=== PATIENT | male | born 1990 | race Caucasian/White ===

== ENCOUNTER 2017-11-16 17:00 | Outpatient (RCR) | payer SELFPAY ==
--- NOTE | 2018-01-10 10:44 | HP.PT.NRP ---
HP - Discharge Summary (1) - Patient Information RAMON ELLIOTT was seen in my office for initial evaluation on 08/23/17. The following Plan of Care was established for this patient: - Anticipated Interventions Manual Therapy Techniques to Include: Functional dry needling This patient was last seen in our office . Pertinent comments regarding their Physical therapy will appear below: Patient has not attended physical therapy in over 8 weeks. At this time patient is appropriate for d/c and return to MD as needed. At this point I will be discontinuing this patient from physical therapy. I would be happy to see this patient again in the future if found appropriate by the physician. Thank you! Sana Carmona
== END 2017-11-16 19:00 | disposition home or self-care (01) ==
LOC: PT 17:00
PROVIDERS: Family Provider Family Medicine; PCP Family Medicine
DX: R69 Illness, unspecified (principal)

== ENCOUNTER → 2018-02-01 15:56 | Outpatient (CLI) | payer BC, SELFPAY | PROVIDERS: Family Provider Family Medicine; PCP Family Medicine; Referring Provider Otolaryngology Otolaryngology/Facial Plastic Surgery; Visit Provider Otolaryngology Otolaryngology/Facial Plastic Surgery | DX: J02.9 Acute pharyngitis, unspecified (principal) | CPT/HCPCS: 87070 ==

== ENCOUNTER 2018-04-06 13:30 | Outpatient (RCR) | payer SELFPAY | END 2018-04-06 19:00 | disposition home or self-care (01) | LOC: PT 13:30 | PROVIDERS: Family Provider Family Medicine; PCP Family Medicine | DX: R69 Illness, unspecified (principal) ==

== ENCOUNTER 2018-11-30 14:00 | Outpatient (RCR) | payer SELFPAY ==
--- NOTE | 2018-12-21 13:28 | HP.PT.NRP ---
HP - Discharge Summary (1) - Patient Information RAMON ELLIOTT was seen in my office for initial evaluation on . The following Plan of Care was established for this patient: This patient was last seen in our office 11/30/18. Pertinent comments regarding their Physical therapy will appear below: Pt. to be DC from DN at this point in time. At this point I will be discontinuing this patient from physical therapy. I would be happy to see this patient again in the future if found appropriate by the physician. Thank you! RAYMON BetancourtT
== END 2018-11-30 19:00 | disposition home or self-care (01) ==
LOC: PT 14:00
PROVIDERS: Family Provider Family Medicine; PCP Family Medicine
DX: R69 Illness, unspecified (principal)

== ENCOUNTER 2019-08-21 13:22 | Outpatient (RCR) | payer SELFPAY | END 2019-08-21 19:00 | disposition home or self-care (01) | LOC: PT 13:22 | PROVIDERS: PCP Family Medicine | DX: Z00.00 Encounter for general adult medical examination without abnormal findings (principal) ==

== ENCOUNTER → 2020-03-27 08:16 | Outpatient (CLI) | payer OTHER, SELFPAY ==
[2020-03-27 10:33] LABS: ALB/GLOB Ratio 1.4 RATIO (0.9-2.4); AST(SGOT) 22 U/L (15-37); Alanine Aminotransfer ALT/SGPT 46 U/L (16-61); Albumin, Serum 4.3 g/dL (3.2-5.0); Alkaline Phosphatase 71 U/L (45-117); Anion Gap 6 (5-15); BUN 17 mg/dL (7-18); BUN/Creat Ratio 20.7 RATIO (10-20); Calcium,Total 8.8 mg/dL (8.5-10.1); Chloride 105 mmol/L (98-107); Cholesterol 182 mg/dL (200); Creatinine, Serum 0.82 mg/dL (0.70-1.30); EST Glomerular Filtration Rate 116 mL/min (>60); Est Glom Filt Rate - Afr Amer 140 mL/min (>60); Globulin 3.1 g/dL (2.2-4.2); Glucose 92 mg/dL (74-106); High Density Lipoprotein 54 mg/dL; Potassium 4.2 mmol/L (3.5-5.1); Protein, Total 7.4 g/dL (6.4-8.2); Sodium Level 139 mmol/L (136-145); Triglycerides 69 mg/dL; Very Low Density Lipoprotein 14 mg/dL (5-40)
== END ==
PROVIDERS: PCP Family Medicine; Referring Provider Family Medicine; Visit Provider Family Medicine
DX: Z13.1 Encounter for screening for diabetes mellitus (principal); Z13.220 Encounter for screening for lipoid disorders
CPT/HCPCS: 36415; 80053; 80061

== ENCOUNTER 2020-04-29 08:11 | Emergency (ER) | payer OTHER, SELFPAY ==
[2020-04-29 08:12] VITALS: BP 130/98; PULSE 102; RESP 20; TEMP 36.5; O2SAT 96; BMI 30.4
--- NOTE | 2020-04-29 08:13 | ED.VIS.GEN ---
History of Present Illness Chief Complaint: Chest Pain Narrative: 30-year-old healthy male presenting with chest pain. He states that started last night and he thought it was reflux, however this morning after going to work he started having sharp in the anterior portion of the right and left chest. It is intermittent. He also describes it as sometimes feeling like a bubble. Patient does not have any cardiac history or cardiac risk factors. He has no history of DVT/PE. Patient does state that he had Covid?19 and tested positive on the . He states he recovered without any sequela until developing chest pain today. Patient does not have fever, chills, nausea, vomiting, change in taste and smell, body aches. Past Medical History - Allergies and Home Meds Allergies/Adverse Reactions: Allergies No Known Allergies Allergy (Verified 05/21/15 16:07) Primary Care Physician: Dawit Hawley MD [Primary Care Provider] - Past Medical History: - - History of Covid?19 Surgical History: noncontributory Lives: Alone Smoking Status: Never smoker Alcohol: None Drugs: None Review of Systems General: Denies: Chills, Fever, Sweats Eyes: Denies: Visual changes - bilaterally, Diplopia ENT: Denies: Rhinorrhea, Sore throat Cardiovascular: Reports: Chest pain, Palpitations, Heart racing Respiratory: Denies: Dyspnea, Cough, Dyspnea on exertion Gastrointestinal: Denies: Abdominal pain, Nausea, Vomiting, Diarrhea, Melena, Hematochezia Genitourinary: Denies: Dysuria, Hematuria, Frequency Musculoskeletal: Denies: Back pain, Extremity Pain Skin: Denies: Rash, Wounds Neurological: Denies: Headache, Weakness, Numbness Psych: Denies: Depression, Anxiety Physical Exam General: Well nourished, Well developed, No Acute Distress Head: Normocephalic, Atraumatic Eyes: Perrl, EOMI ENT: Moist mucous membranes, No rhinorrhea Cardiovascular: Regular rate, Regular rhythm, No murmurs Respiratory: No distress, CTA bilaterally, Chest nontender Extremities: Nontender, No edema. Negative for: Calf Tenderness Skin: Normal color, No rash. Negative for: Cyanosis, Diaphoresis Neurological: Alert, Oriented x3, Cranial nerves II-XII grossly intact Psychological: Normal affect, Normal Mood Diagnostic/Tx/Re-eval - Rhythm Strip Rhythm Strip: Sinus Rhythm Rate: 87 - EKG Initial EKG Interpretation: Sinus Rhythm, No Acute Injury Pattern, Sinus Arrythmia - Medical Decision Making 1-year-old healthy male presenting with chest pain since this morning. He denies nausea, lightheadedness, diaphoresis. Patient does not complain of shortness of breath but does state that he has palpitations. Patient recently recovered from Covid?19 without sequela thus far. On arrival patient had EKG interpreted by myself which shows a normal sinus rhythm with slight sinus arrhythmia. There are no changes. Patient CBC shows no leukocytosis. Renal function and electrolytes are normal. Troponin is negative. Chest x-ray is interpreted by myself and the radiologist shows no acute process. Heart score is 0. D-dimer is negative. I have low suspicion for ACS I do not believe the patient needs a repeat troponin or EKG. Patient will be discharged home in stable condition. Impression: 1. Chest pain ED Disposition - Plan for ED Patient: Disposition: Home or Assisted Living Instructions: ED Chest Pain, Uncertain Cause Referrals: Dawit Hawley MD [Primary Care Provider] -
--- NOTE | 2020-04-29 08:18 | RAD_ITS ---
STUDY: X-RAY CHEST REASON FOR EXAM: Male, 30 years old. Chest pain with palpitations started this morning, arm pain TECHNIQUE: Single AP portable view of the chest. COMPARISON: Comparison is made with prior study dated 05/08/2014. FINDINGS: EKG electrodes are seen. The lungs are clear and expanded. There is no demonstrated pleural abnormality. Normal size heart. Normal mediastinum and monika. Normal visualized pulmonary arteries. Normal visualized aortic arch and descending thoracic aorta. Normal visualized thoracic spine. Normal visualized ribs, clavicles, and shoulders. There is no demonstrated abnormality of the visualized soft tissue structures of the upper abdomen. RAD/Chest 1 View (Portable) IMPRESSION: Normal x-ray examination of the chest. Electronically Signed: Juan Briggs, at 9:00 EST , Service support ,
--- NOTE | 2020-04-29 08:18 | EKG12_ITS ---
Test Reason : CP Blood Pressure : / mmHG Vent. Rate : 087 BPM Atrial Rate : 087 BPM P-R Int : 128 ms QRS Dur : 094 ms QT Int : 358 ms P-R-T Axes : 075 080 028 degrees QTc Int : 430 ms Normal sinus rhythm with sinus arrhythmia Normal ECG Confirmed by MYRNA SHULTZ, MARY ([id number]), editor in chief newspaper SHU MCKINNEY ([id number]) on 05/01/2020 11:28:27 AM Referred By: OMAYRA Confirmed By:MARY NORRIS MD
[2020-04-29 08:28] LABS: Absolute Lymphocyte Count 2.16 X10^3/uL (0.83-4.51); Absolute Neutrophil Count 2.3 X10^3/uL (2.0-7.7); Basophil# 0.03 X10^3/uL; Basophil% 0.6 % (0-1); Eosinophil# 0.08 X10^3/uL; Eosinophils% 1.5 % (0-5); Hematocrit 46.7 % (40-54); Lymphocyte # 2.16 X10^3/ul (4.0); Lymphocyte % 41.6 % (19-41); Mean Corp Hgb Conc 34.3 g/dL (32-36); Mean Corpuscular Hgb 30.2 pg (27.0-32.0); Mean Corpuscular Volume 88.1 fL (80-94); Mean Platelet Vol. 9.5 fl (6.2-12.0); Monocyte# 0.61 X10^3/uL; Monocyte% 11.8 % (0-10); NRBC Flagged by Analyzer 0 % (0-5); Neutrophil % 44.3 % (47-70); Platelet Count 315 K/mm3 (150-450); RBC Distribution Width CV 12.2 % (11.6-14.6); RBC Distribution Width SD 39.6 fl (35.1-43.9); White Blood Count 5.2 K/mm3 (4.4-11.0)
[2020-04-29] MEDS: 0.9% Normal Saline 1,000 ML 1000 ML IV (08:29)
[2020-04-29 08:42] LABS: ALB/GLOB Ratio 1.3 RATIO (0.9-2.4); AST(SGOT) 21 U/L (15-37); Alanine Aminotransfer ALT/SGPT 51 U/L (16-61); Albumin, Serum 4.3 g/dL (3.2-5.0); Alkaline Phosphatase 86 U/L (45-117); Anion Gap 5 (5-15); BUN 14 mg/dL (7-18); BUN/Creat Ratio 14.8 RATIO (10-20); Calcium,Total 8.8 mg/dL (8.5-10.1); Chloride 108 mmol/L (98-107); Creatinine, Serum 0.95 mg/dL (0.70-1.30); EST Glomerular Filtration Rate 99 mL/min (>60); Est Glom Filt Rate - Afr Amer 119 mL/min (>60); Globulin 3.2 g/dL (2.2-4.2); Glucose 104 mg/dL (74-106); Potassium 3.7 mmol/L (3.5-5.1); Protein, Total 7.5 g/dL (6.4-8.2); Sodium Level 140 mmol/L (136-145)
[2020-04-29 09:30] LABS: D-Dimer Quantitative (DVT/PE) <= 0.27 FEU/ug/m (0.27-0.49)
[2020-04-29 10:11] VITALS: BP 133/74; PULSE 83; RESP 16; O2SAT 98
[2020-04-29 11:25] VITALS: BP 119/68; PULSE 81; RESP 18; O2SAT 98
== END 2020-04-29 11:29 | disposition home or self-care (01) ==
PROVIDERS: Emergency Provider Student in an Organized Health Care Education/Training Program; PCP Family Medicine
DX: R07.9 Chest pain, unspecified (principal); Z86.16 Personal history of COVID-19
CPT/HCPCS: 71045; 80053; 84484; 85025; 85379; 93005; 96360; 96361; 99284; J7030; A4216

== ENCOUNTER → 2020-05-07 11:50 | Outpatient (CLI) | payer OTHER, SELFPAY ==
[2020-04-29 08:12] VITALS: BMI 30.4
== END ==
PROVIDERS: PCP Family Medicine; Referring Provider Internal Medicine Cardiovascular Disease; Visit Provider Internal Medicine Cardiovascular Disease
DX: R07.9 Chest pain, unspecified (principal); R00.2 Palpitations; U07.1 COVID-19
CPT/HCPCS: 93225; 93226

== ENCOUNTER → 2020-06-04 13:51 | Outpatient (CLI) | payer OTHER, SELFPAY ==
[2020-05-21 12:48] VITALS: BMI 29.9
--- NOTE | 2020-06-04 13:52 | ECHOD_ITS ---
Reason For Study: ARRHYTHMIA Procedure This was a 2D Doppler, Color Flow transthoracic echocardiogram. Exam performed in department. Left Ventricle Normal LV size. Left ventricular systolic function is normal. The estimated ejection fraction is 60 %. Normal diastology for age. No regional wall motion abnormalities noted. Right Ventricle Normal RV size. Normal systolic function. Atria Normal left atrium. Normal right atrium. Mitral Valve Normal mitral valve. Tricuspid Valve Normal tricuspid valve. Unable to estimate RV systolic pressure due to inadequate jet, pulmonary artery pressure probably normal. Aortic Valve Normal aortic valve. Trisinus/trileaflet aortic valve. Pulmonic Valve Normal pulmonic valve. Great Vessels Normal aortic root. The pulmonary artery is normal size. Normal inferior vena cava. Pericardium/Pleural No pericardial effusion. MMode/2D Measurements & Calculations LVIDd: 5.6 cm IVSd: 1.0 cm Ao root diam: 3.0 cm LVIDs: 3.8 cm LVPWd: 0.95 cm RVDd: 3.4 cm FS: 32.2 % LAV(MOD-bp): 43.8 ml LA A4 area: 18.0 cm2 LA dimension(2D): 3.6 cm LAV(MOD-bp) Indexed: 21.0 ml/m2 LAV(MOD-sp2): 36.8 ml LAV(MOD-sp4): 53.0 ml RA A4 area: 15.0 cm2 Time Measurements MV dec time: 0.17 sec Doppler Measurements & Calculations MV A max kar: 55.3 cm/sec Lat Peak E' Kar: 16.7 cm/sec Med Peak E' Kar: 13.0 cm/sec Ao V2 max: 101.3 cm/sec PA V2 max: 89.1 cm/sec Ao max P.1 mmHg Interpretation Summary Normal LV size. Left ventricular systolic function is normal. The estimated ejection fraction is 60 %. Structurally normal valves. Ordering Physician: Martha^Edson^^^ Referring Physician: Dawit Hawley Performed By: Monica Santacruz, PIIL, RVT
== END ==
PROVIDERS: PCP Family Medicine; Referring Provider Internal Medicine Cardiovascular Disease; Visit Provider Internal Medicine Cardiovascular Disease
DX: R00.2 Palpitations (principal)
CPT/HCPCS: 93306

== ENCOUNTER → 2021-02-16 07:30 | Outpatient (CLI) | payer OTHER, SELFPAY | PROVIDERS: PCP Family Medicine; Referring Provider Family Medicine; Visit Provider Family Medicine | DX: Z01.83 Encounter for blood typing (principal) | CPT/HCPCS: 36415; 86900; 86901 ==

== ENCOUNTER 2022-09-24 11:33 | Emergency (ER) | payer OTHER, SELFPAY ==
[2022-09-24 11:33] VITALS: BP 166/88; PULSE 119; RESP 16; TEMP 36.9; O2SAT 100; BMI 30.9
--- NOTE | 2022-09-24 12:45 | RAD_ITS ---
STUDY: X-RAY - RIGHT HAND REASON FOR EXAM: Male, 32 years old. Crush injury 5th finger TECHNIQUE: 3 view(s) of the hand. COMPARISON: None. FINDINGS: Normal radiocarpal articulation. Normal distal radioulnar joint. Normal visualized carpal bones. Normal carpal articulations Normal carpometacarpal articulation of the thumb. Normal second through fifth carpometacarpal joints. Normal metacarpi. Normal metacarpophalangeal joint of the thumb. Normal interphalangeal joint of the thumb. Normal proximal and distal phalanges of the thumb. Normal metacarpophalangeal joints of the second through fifth fingers. Normal proximal and distal interphalangeal joints of the second through fifth fingers. Normal phalanges of the second through fifth fingers. Soft tissue swelling. RAD/Hand Min 3 Views IMPRESSION: Soft tissue swelling. Electronically Signed: Juan Briggs MD at 13:20 EDT ,
--- NOTE | 2022-09-24 13:02 | EX.ED.GENINJ ---
HPI <LAVERNE Pandya - Last Filed: 09/24/22 15:09> History of Present Illness Chief Complaint: Laceration Narrative Narrative: Patient presenting today due to laceration to his right fifth finger that he got at work this morning. He reports that he was working with a steel rack when the rack fell and smashed his pinky finger. He is unsure if his tetanus is up-to-date or not. He denies any other injury. He is not on any blood thinners. PFS <LAVERNE Pandya - Last Filed: 09/24/22 15:09> [facility] Medical History (Updated 09/24/22 @ 14:20 by LAVERNE Pandya) ADD (attention deficit disorder) Obesity Home Medications methylphenidate HCl 20 mg capsule,extended release (40-60) sprinkle 20 mg PO DAILY 05/06/20 [History Last Taken Unknown] Allergy/AdvReac Type Severity Reaction Status Date / Time cefaclor [From Ceclor] Allergy hives Verified 09/24/22 11:35 erythromycin base AdvReac GI upset Verified 09/24/22 11:35 [From Erythrocin] prednisolone [From Prelone] AdvReac GI upset Verified 09/24/22 11:35 Family History Father CAD (coronary artery disease) Myocardial infarction Surgical History History of wisdom tooth extraction Social History Smoking Status: Never smoker ROS <LAVERNE Pandya - Last Filed: 09/24/22 15:09> ROS ED Constitutional Constitutional ED: Denies chills or fever(s) Cardiovascular Cardiovascular: Denies chest pain or palpitations Respiratory/Chest Respiratory/Chest: Denies cough, dyspnea, tachypnea or wheezing Gastrointestinal Gastrointestinal: Denies abdominal pain, nausea or vomiting Musculoskeletal Musculoskeletal: Reports arthralgias; Denies myalgias Integumentary Reports laceration Neurologic Neurologic: Denies weakness EXAM <LAVERNE Pandya - Last Filed: 09/24/22 15:09> Physical Exam Const Vital Signs: 09/24/22 11:33 Temperature 98.4 F Temperature Source Temporal Pulse Rate 119 H Respiratory Rate 16 Blood Pressure 166/88 H Blood Pressure Mean 114 Pulse Ox 100 Oxygen Delivery Method Room Air Positive well nourished, well developed and no apparent distress General Appearance ED: well developed HEENT Reports normocephalic and head/scalp atraumatic Mouth ED: Yes moist mucous membranes normal Eyes PERRL and EOMs intact bilaterally Neck full ROM and supple Chest Wall inspection of chest normal Resp normal respiratory effort and clear to auscultation bilaterally Cardio regular rate and regular rhythm GI soft to palpation, non-tender, non-distended and no masses Back/Spine normal ROM and normal to inspection Extremity Extremity Narrative: Laceration to the right fifth finger to the lateral aspect of the base of the nail, the base of the nail is detached. Patient has full flexion and extension at both the MCP, PIP, and DIP joints of this finger. Radial pulses 2+ bilaterally, good capillary refill, sensation intact. Neuro oriented x3, CN's II-XII intact bilaterally, moves all extremities, no focal motor deficits and no sensory deficits noted Sensorium / Orientation: awake and alert Psych mental status grossly normal and thought process normal <Dr. Daniel Qureshi, DO - Last Filed: 09/24/22 22:26> Physical Exam Const Vital Signs: 09/24/22 11:33 Temperature 98.4 F Temperature Source Temporal Pulse Rate 119 H Respiratory Rate 16 Blood Pressure 166/88 H Blood Pressure Mean 114 Pulse Ox 100 Oxygen Delivery Method Room Air PROC <LAVERNE Pandya - Last Filed: 09/24/22 15:09> Procedures Lacerations Laceration : Length: 1 cm Depth: Sub Q Shape: Linear Prep: Chlorhexadine Laceration repair: Digital block Number of Sutures/[place]: 3 Suture Information: Vicryl and 5-0 MDM <LAVERNE Pandya - Last Filed: 09/24/22 15:09> [facility] Narrative Medical decision making narrative: Patient presenting today due to an avulsion of the right fifth nailbed after crush injury occurred at work. He does have a small 0.5 cm subq laceration to the lateral aspect of his finger that is adjacent to the nailbed. Digital block was performed. The area was cleaned with chlorhexidine. I was able to remove the fingernail, there was one small irregularly shaped laceration to the nailbed that was repaired with sutures. The laceration to the lateral aspect of the finger was repaired with sutures. Tetanus was updated. The nail was cleaned and placed over top of the nailbed. Area was wrapped with a bandage and patient has been given a follow-up referral. He has been given a splint for his finger for protection. He will be discharged home in stable condition and is comfortable with plan. He has been given return instructions. Radiography X-Ray: Read by ED Physician and Read by Radiologist Diagnostic Testing: Clinical Impression(s) from Imaging Studies Hand X-Ray 09/24/22 12:45 IMPRESSION: Soft tissue swelling. Electronically Signed: Juan Briggs MD at 13:20 EDT , <Dr. Daniel Qureshi, DO - Last Filed: 09/24/22 22:26> MDM Radiography Diagnostic Testing: Clinical Impression(s) from Imaging Studies Hand X-Ray 09/24/22 12:45 IMPRESSION: Soft tissue swelling. Electronically Signed: Juan Briggs MD at 13:20 EDT , Treatment and Re-Evaluation Narrative: I have personally performed a face to face assessment of the patient and have reviewed the MELECIO Note. I performed a substantive portion of the visit including all aspects of the following. My [place] findings include: History: Patient presents with injury to his right fifth finger that occurred today. Patient states he got smashed between a steel plate and another hard object. Patient states the nail came out of the base of the nailbed. Patient states bleeding stopped after several minutes of pressure. Patient denies any paresthesias or weakness. Patient denies any other injuries. Patient is unsure of his last tetanus. Exam: Vital signs are stable. Patient is afebrile. Patient is in no acute distress. Musculoskeletal exam reveals tenderness over the distal phalanx of the right fifth finger. There is an avulsion of the base of the nail plate. There is no active bleeding noted. There is no obvious deformity noted. Range of motion was slightly limited in flexion extension of the DIP joint of the right fifth finger secondary to pain. Sensation was intact to light touch in all digits. Capillary refill is less than 2 seconds in all digits. Medical Decision Making: Differential diagnosis includes fracture, contusion, and laceration. X-rays of the right hand will be obtained to assess for fractures. X-rays of the right hand were reviewed. There are 3 views. On my independent interpretation, there is no acute fracture. Radiologist also interpreted the x-rays and agrees. Patient was given a tetanus booster. The right fifth finger was anesthetized with 1% lidocaine via digital block. The nail plate was removed. The wounds were cleaned and irrigated with copious amounts of normal saline. The wounds were closed by ED MELECIO under my supervision. Patient tolerated the procedure well. The nail was replaced under the eponychium. Bacitracin dressing was applied. Patient was instructed to keep the area clean and dry. Patient was instructed to follow-up with his primary care physician in 5 to 7 days. Patient understood and was agreeable with the plan. All questions were answered. Discharge Plan Triage Chief Complaint: Laceration ED Midlevel Provider: Kym Landis ED Provider: Daniel Qureshi Dx/Rx/DC Orders Clinical Impression: Avulsion of nail bed, Crush injury to finger, Laceration of finger nail bed Instructions: ED FINGERNAIL REMOVAL Prescriptions: No Action methylphenidate HCl 20 mg cap,ER sprinkle,biphasic 40-60 20 mg PO DAILY Primary Care Provider: Gene Lomax Referrals: Gene Lomax MD [Primary Care Provider] - Murtaza Vazquez DO [Med Staff - Active Staff] - 3-5 Days Activity Restrictions/Additional Instructions: Keep the area clean and covered, ice it several times a day for the next few days. Alternate Tylenol and ibuprofen for pain. Disposition Disposition: Home, Self Care Discharge Date/Time: 09/24/22 14:48
[2022-09-24] MEDS: Diphth,Pertuss(Acell),Tet Vac 0.5 ML Vial IM (13:10)
[2022-09-24] MEDS: Lidocaine 1% (20 ml mdv) 20 ML Vial 10 ML INFILT (14:31)
== END 2022-09-24 14:48 | disposition home or self-care (01) ==
PROVIDERS: Emergency Provider Emergency Medicine; PCP Family Medicine; Visit Provider Emergency Medicine
DX: S67.196A Crushing injury of right little finger, initial encounter (principal); S61.316A Laceration without foreign body of right little finger with damage to nail, initial encounter; W22.8XXA Striking against or struck by other objects, initial encounter; Y93.89 Activity, other specified; Y99.0 Civilian activity done for income or pay; Z23 Encounter for immunization
CPT/HCPCS: 11760; 12001; 73130; 90715; 99283

== ENCOUNTER → 2024-03-22 | Outpatient (CLI) | payer OTHER, SELFPAY ==
[2024-03-22 10:39] LABS: Anion Gap 4 (5-15); BUN 17 mg/dL (7-18); Calcium,Total 9.1 mg/dL (8.5-10.1); Chloride 108 mmol/L (98-107); Cholesterol 216 mg/dL (200); EST Glomerular Filtration Rate 102 mL/min (>60); Est Glom Filt Rate - Afr Amer 124 mL/min (>60); Glucose 96 mg/dL (74-106); High Density Lipoprotein 57 mg/dL; Potassium 4.1 mmol/L (3.5-5.1); Sodium Level 139 mmol/L (136-145); Triglycerides 87 mg/dL; Very Low Density Lipoprotein 17 mg/dL (5-40)
== END | disposition home or self-care (01) ==
PROVIDERS: PCP Family Medicine; Referring Provider Family Medicine; Visit Provider Family Medicine
DX: Z13.220 Encounter for screening for lipoid disorders (principal); Z13.1 Encounter for screening for diabetes mellitus
CPT/HCPCS: 36415; 80048; 80061

== ENCOUNTER → 2024-08-10 | Outpatient (CLI) | payer OTHER, SELFPAY ==
[2024-08-10 15:02] LABS: Absolute Lymphocyte Count 2.38 X10^3/uL (0.83-4.51); Absolute Neutrophil Count 2.9 X10^3/uL (2.0-7.7); Basophil# 0.06 X10^3/uL; Eosinophil# 0.06 X10^3/uL; Hematocrit 45.8 % (40-54); Hemoglobin 15.9 g/dL (13.0-16.5); Lymphocyte # 2.38 X10^3/ul (0.83-4.51); Lymphocyte % 39.5 % (19-41); Mean Corp Hgb Conc 34.7 g/dL (32-36); Mean Corpuscular Hgb 30.5 pg (27.0-32.0); Mean Corpuscular Volume 87.9 fL (80-94); Mean Platelet Vol. 9.6 fl (6.2-12.0); Monocyte# 0.58 X10^3/uL; Monocyte% 9.6 % (0-10); NRBC Flagged by Analyzer 0 % (0-5); Neutrophil # 2.93 X10^3/uL (2.7-7.7); Neutrophil % 48.6 % (47-70); Platelet Count 302 K/mm3 (150-450); RBC Distribution Width CV 13.2 % (11.6-14.6); RBC Distribution Width SD 42.5 fl (35.1-43.9); Red Blood Count 5.21 M/mm3 (4.6-6.2)
[2024-08-10 15:33] LABS: ALB/GLOB Ratio 1.6 RATIO (0.9-2.4); AST(SGOT) 25 U/L (<=37); Alanine Aminotransfer ALT/SGPT 35 U/L (<=46); Albumin, Serum 4.5 g/dL (3.5-5.0); Alkaline Phosphatase 66 U/L (40-129); Anion Gap 13 (5-15); BUN 11 mg/dL (4-19); BUN/Creat Ratio 13.4 RATIO (10-20); Calcium,Total 9.3 mg/dL (7.6-11.0); Carbon Dioxide 24.3 mmol/L (21.0-32.0); Chloride 103 mmol/L (98-108); Creatinine, Serum 0.85 mg/dL (0.70-1.20); EST Glomerular Filtration Rate 116 (>60); Globulin 2.7 g/dL (2.2-4.2); Glucose 89 mg/dL (70-99); Hepatitis B Surface Antibody REAC; Potassium 3.8 mmol/L (3.3-5.1); Protein, Total 7.3 g/dL (5.9-8.4); Sodium Level 140 mmol/L (133-145)
[2024-08-14 06:07] LABS: HEPATITIS B SURFACE AG Negative (Negative); Hep C Antibodies Non Reactive (Non Reactive); Hepatitis A AB, Total Negative (Negative); Hepatitis A IgM Antibody Negative (Negative); Hepatitis B Core AB IgM Negative (Negative); QNTFERON TB Mitogen Value > 10.00 IU/mL (.); QNTFERON TB Nil Value 0.04 IU/mL (.); QNTFERON TB1+ Ag Value 0.06 IU/mL (.); QNTFERON TB2+ Ag Value 0.05 IU/mL (.); QNTIFERON TB Positive Criteria Negative (Negative)
== END | disposition home or self-care (01) ==
LOC: MTLAB 12:37
PROVIDERS: PCP Family Medicine; Referring Provider Dermatology Pediatric Dermatology; Visit Provider Dermatology Pediatric Dermatology
DX: L40.0 Psoriasis vulgaris (principal); Z79.899 Other long term (current) drug therapy
CPT/HCPCS: 36415; 80053; 80074; 85025; 86480; 86706; 86708